=== PATIENT | male | born 1990 | race Two or more races ===

== ENCOUNTER 2023-10-22 16:07 | Inpatient (IN) | payer SELFPAY ==
[~2023-10-22] VITALS: Ht 172.7 cm; Wt 78.8 kg
[2023-10-22 17:24] LABS: Basophils # (auto) 0.1 10 ^3/uL (0-0.2); Basophils % (auto) 0.6 % (0.0-2.0); Eosinophils # (auto) 0 10 ^3/uL (0-0.8); Eosinophils % (auto) 0.1 % (0.0-7.0); Hemoglobin 15.7 g/dL (13.5-17.5); Lymphocytes # (auto) 1.9 10 ^3/uL (0.4-5.4); Lymphocytes % (auto) 20.1 % (10.0-50.0); Mean Corpuscular Hemoglobin 30.3 pg (28.0-32.0); Mean Corpuscular Hgb Conc. 33.3 g/dL (32.0-36.0); Mean Corpuscular Volume 91.1 fL (80.0-100.0); Monocytes # (auto) 0.6 10 ^3/uL (0-1.3); Monocytes % (auto) 6.6 % (0.0-12.0); Neutrophils # (auto) 6.9 10 ^3/uL (1.6-8.6); Neutrophils % (auto) 72.6 % (37.0-80.0); Nucleated Red Blood Cells % 0.1 %; Red Blood Cells 5.16 10^6/uL (4.5-5.90); Red Cell Distribution Width 13.5 % (11.8-14.3); White Blood Cell 9.5 10^3/uL (4.4-10.8)
[2023-10-22 17:47] LABS: Acetaminophen < 2.0 UG/ML (10.0-20.0)
[2023-10-22 17:50] LABS: Salicylate < 3.0 mg/dL (2.8-20.0)
[2023-10-22 18:00] LABS: Alanine Aminotransferase 31 U/L (7-40); Albumin 4.7 g/dL (3.2-4.8); Alkaline Phosphatase 104 U/L (46-116); Anion Gap 15 (5-15); Aspartate Aminotransferase 20 U/L (13-40); BUN/Creatinine Ratio 7.6 (10.0-20.0); Blood Urea Nitrogen 10 mg/dL (9-23); Calcium 9.3 mg/dL (8.7-10.4); Carbon Dioxide 21 mmol/L (20-30); Chloride 102 mmol/L (98-107); Glucose 111 mg/dL (74-106); Potassium 2.8 mmol/L (3.5-5.1); Sodium 138 mmol/L (136-145)
[2023-10-22 18:01] LABS: Bilirubin, Total 0.7 mg/dL (0.2-1.0); Total Protein 7.2 g/dL (5.7-8.2)
[2023-10-22 18:25] LABS: Blood Alcohol 323.6 mg/dL (<10)
[2023-10-22] MEDS: LORazepam 2MG/ML-1ML VIAL IV ONE (18:43)
[2023-10-22 18:54] LABS: Amphetamine Screen, Urine Pos (NEGATIVE); Barbiturate Scree,Urine Neg (NEGATIVE); Benzodiazephine Screen, Urine Neg (NEGATIVE); Cocaine Screen, Urine Neg (NEGATIVE); Opiate Scree,Urine Neg (NEGATIVE)
[2023-10-22 18:55] LABS: Cannabinoid Screen, Urine Pos (NEGATIVE); Phencyclidine Screen, Urine Neg (NEGATIVE)
[2023-10-22 19:29] LABS: Urine Bacteria FEW /hpf (None Seen); Urine Blood Negative /uL (Negative); Urine Clarity HAZY (Clear); Urine Color Yellow (Yellow); Urine Hyaline Cast MOD /lpf (0 - 2); Urine Mucus FEW (None Seen); Urine Protein, UAD 2+ (Negative); Urine Specific Gravity 1.026 (1.001-1.035); Urine Sperm PRESENT /hpf (None Seen); Urine WBC 5 /hpf (0 - 3); Urine pH 5.5 (5.0-8.0)
[2023-10-22] MEDS: SODIUM CHLORIDE 0.9% 2,000 ML IV ONE (21:50)
[2023-10-23] MEDS: SODIUM CHLORIDE 0.9% 2,000 ML IV ONE (03:03)
[2023-10-23] MEDS ORDERED: ONDANSETRON HCL 4 MG/2 ML VIAL IV PRN (05:30)
[2023-10-23] MEDS ORDERED: MORPHINE SULFATE INJ 2 MG/ml SYRG IV PRN (05:30)
[2023-10-23] MEDS ORDERED: NITROGLYCERIN 0.4 MG SL TAB SL PRN (05:30)
[2023-10-23] MEDS: LACTATED RINGER'S 1,000 ML IV ONE (05:49)
[2023-10-23 07:30] VITALS: PULSE 94; RESP 15; O2SAT 98
[2023-10-23] MEDS ORDERED: LORazepam 2MG/ML-1ML VIAL IV PRN (09:30)
[2023-10-23 10:11] LABS: Chloride 110 mmol/L (98-107); Potassium 3.9 mmol/L (3.5-5.1); Sodium 138 mmol/L (136-145)
[2023-10-23 10:12] LABS: Anion Gap 8 (5-15); Carbon Dioxide 20 mmol/L (20-30)
[2023-10-23 10:13] LABS: Calcium 8.1 mg/dL (8.5-10.1)
[2023-10-23 10:14] LABS: Basophils # (auto) 0 10 ^3/uL (0-0.2); Basophils % (auto) 0.4 % (0.0-2.0); Eosinophils # (auto) 0 10 ^3/uL (0-0.8); Eosinophils % (auto) 0.1 % (0.0-7.0); Hematocrit 38.3 % (41.0-53.0); Hemoglobin 12.5 g/dL (13.5-17.5); Lymphocytes # (auto) 1.8 10 ^3/uL (0.4-5.4); Lymphocytes % (auto) 15.9 % (10.0-50.0); Mean Corpuscular Hgb Conc. 32.7 g/dL (32.0-36.0); Mean Corpuscular Volume 91.8 fL (80.0-100.0); Monocytes # (auto) 0.4 10 ^3/uL (0-1.3); Monocytes % (auto) 3.9 % (0.0-12.0); Neutrophils % (auto) 79.7 % (37.0-80.0); Red Blood Cells 4.17 10^6/uL (4.5-5.90); White Blood Cell 11.2 10^3/uL (4.4-10.8)
[2023-10-23 10:17] LABS: Glucose 87 mg/dL (74-106)
[2023-10-23 10:18] LABS: BUN/Creatinine Ratio 18.8 (10.0-20.0); Blood Urea Nitrogen 13 mg/dL (9-23)
[2023-10-23] MEDS: POTASSIUM CHL 20 Meq TABLET PO ONE (10:27)
[2023-10-23] MEDS: POTASSIUM CHL 20MEQ/100ML 100 ML IV SCH (10:28)
[2023-10-23 16:26] VITALS: BP 103/66; PULSE 18; PULSE 90; RESP 18; TEMP 98.8; O2SAT 97
[2023-10-23 16:30] VITALS: BP 103/66; PULSE 90; RESP 18; TEMP 98.8; O2SAT 97
[2023-10-23] MEDS ORDERED: IBUPROFEN 400 MG TAB PO PRN (17:30)
[2023-10-23] MEDS: chlordiazePOXIDE HCL 25 MG CAP PO PRN (17:46)
[2023-10-23] MEDS: FOLIC ACID 1 MG, MAGNESIUM SULF SDV 50% 8 MEQ, MULTIPLE VITAMIN 10 ML, THIAMINE INJ 100... INJ SCH (17:49)
[2023-10-23 19:58] VITALS: BP 123/54; PULSE 90; RESP 18; TEMP 98.1; O2SAT 97
[2023-10-23 20:00] VITALS: PULSE 100
[2023-10-23 22:00] VITALS: BP 119/75; PULSE 90; RESP 20; TEMP 98.1
[2023-10-24 05:00] VITALS: BP 119/61; PULSE 71; RESP 18; TEMP 98; O2SAT 100
[2023-10-24 05:25] LABS: Basophils # (auto) 0 10 ^3/uL (0-0.2); Basophils % (auto) 0.6 % (0.0-2.0); Eosinophils # (auto) 0 10 ^3/uL (0-0.8); Eosinophils % (auto) 0.7 % (0.0-7.0); Hematocrit 38.4 % (41.0-53.0); Hemoglobin 12.8 g/dL (13.5-17.5); Lymphocytes # (auto) 2.4 10 ^3/uL (0.4-5.4); Lymphocytes % (auto) 38.4 % (10.0-50.0); Mean Corpuscular Hemoglobin 30.3 pg (28.0-32.0); Mean Corpuscular Hgb Conc. 33.3 g/dL (32.0-36.0); Monocytes # (auto) 0.5 10 ^3/uL (0-1.3); Monocytes % (auto) 8.1 % (0.0-12.0); Neutrophils # (auto) 3.3 10 ^3/uL (1.6-8.6); Neutrophils % (auto) 52.2 % (37.0-80.0); Nucleated Red Blood Cells % 0.2 %; Red Blood Cells 4.22 10^6/uL (4.5-5.90); Red Cell Distribution Width 13.4 % (11.8-14.3); White Blood Cell 6.2 10^3/uL (4.4-10.8)
[2023-10-24 05:38] LABS: Anion Gap 5 (5-15); Calcium 8.5 mg/dL (8.5-10.1); Carbon Dioxide 24 mmol/L (20-30); Chloride 109 mmol/L (98-107); Potassium 3.9 mmol/L (3.5-5.1); Sodium 138 mmol/L (136-145)
[2023-10-24 05:44] LABS: BUN/Creatinine Ratio 14.9 (10.0-20.0); Blood Urea Nitrogen 10 mg/dL (9-23); Glucose 89 mg/dL (74-106)
[2023-10-24 08:00] VITALS: PULSE 79; PULSE 96; RESP 20; O2SAT 97
[2023-10-24 09:00] VITALS: BP 105/61; PULSE 79; RESP 20; TEMP 98.4; O2SAT 97
[2023-10-24 10:29] VITALS: PULSE 79; RESP 20; O2SAT 97
[2023-10-24 11:17] VITALS: BP 103/61; PULSE 75; RESP 19; TEMP 98.6; O2SAT 99
== END 2023-10-24 13:30 | disposition home or self-care (01) | DRG 917 ==
LOC: ER 16:07 → EDBD 16:07 → TELE-WESTW 10-23 05:31 → EDBD 10-23 05:31 → TELE 10-23 05:31 → TELE-WESTW 10-23 16:09
PROVIDERS: ADMIT Internal Medicine; ATTEND Internal Medicine
DX: T50.901A Poisoning by unspecified drugs, medicaments and biological substances, accidental (unintentional), initial encounter (principal); G92.8 Other toxic encephalopathy; Z59.00 Homelessness unspecified; F10.139 Alcohol abuse with withdrawal, unspecified; F10.129 Alcohol abuse with intoxication, unspecified; I10 Essential (primary) hypertension; I95.9 Hypotension, unspecified; F19.10 Other psychoactive substance abuse, uncomplicated; Y90.9 Presence of alcohol in blood, level not specified; Z87.891 Personal history of nicotine dependence
CPT/HCPCS: 36415; 70450; 71045; 80048; 80053; 80307; 80320; 80329; 81001; 82140; 84484; 85025; 96361; 96374; G0378; J3480